=== PATIENT | female | born 1945 | race Caucasian/White ===

== ENCOUNTER → 2020-06-11 15:37 | Outpatient (CLI) | payer OTHER, SELFPAY ==
--- NOTE | ~2020-06-11 | DEXA_ITS ---
Bone Density Report Name: Gloria Escalona Age: 74 Sex: Female Ethnicity: White Date of : 1945 Indication: osteopenia; height loss; prior fracture; hysterectomy; postmenopausal Referring Provider: MARIZA RAINEY Study: Bone densitometry was performed. Exam Date: June 11, 2020 Accession number: [id number] Bone Density: Region BMD T-score Z-score Classification AP Spine (L1-L4) 0.977 -0.6 1.6 Normal Femoral Neck (Left) 0.560 -2.6 -0.7 Osteoporosis Total Hip (Left) 0.699 -2.0 -0.4 Osteopenia Femoral Neck (Right) 0.541 -2.8 -0.8 Osteoporosis Total Hip (Right) 0.688 -2.1 -0.4 Osteopenia Total Hip Mean 0.694 -2.1 -0.4 Osteopenia World Health Organization criteria for BMD impression classify patients as: Normal (T-score at or above -1.0), Osteopenia (T-score between -1.0 and -2.5), or Osteoporosis (T-score at or below -2.5). 10-year Fracture Risk: FRAX not reported because: Some T-score for Spine Total or Hip Total or Femoral Neck at or below -2.5 Previous Exams: Region Exam Age BMD T-score BMD Change BMD Change Date g/cm2 vs Baseline vs Previous AP Spine(L1-L4) 06/11/2020 74 0.977 -0.6 0.062 0.018 01/26/2017 71 0.960 -0.8 0.045 -0.025 01/26/2017 71 0.985 -0.6 0.070 0.070 04/04/2009 63 0.915 -1.2 Total Hip(Left) 06/11/2020 74 0.699 -2.0 -0.113 -0.015 01/26/2017 71 0.714 -1.9 -0.098 -0.098 04/04/2009 63 0.812 -1.1 Total Hip(Right) 06/11/2020 74 0.688 -2.1 -0.068 -0.044* 01/26/2017 71 0.733 -1.7 -0.024 -0.024 04/04/2009 63 0.757 -1.5 *Denotes significance at 95% confidence level, LSC for AP Spine = 0.022 g/cm2, LSC for Total Hip = 0.027 g/cm2 Clinical Information Provided by Patient: Has had a low trauma fracture Has used the following medications: Evista (i.e. raloxifene), Calcium Has the following medical conditions: Hysterectomy, COLITIS Patient maximum height was 63 Menopause Age: 48 Drinks caffeinated beverages Onset of menses at age 12.5 Number of children 1 Impression: The patient has established osteoporosis, based on the Right Femoral Neck T-score and the existence of a prior fracture. The patient has risk factors, including: previous fracture. The BMD for the Total Hip(Right) decreased, changing by -0.044 since the last DXA exam. Discussion: HIGH RISK OF FRACTURE. BON
--- NOTE | ~2020-06-11 | MM_ITS ---
EXAMINATION: MM screening [facility] BI w charly HISTORY: Screening TECHNIQUE: Craniocaudal and mediolateral oblique 3-D tomosynthesis images were obtained and synthetic 2-D images were generated. CAD analysis was submitted and interpreted. COMPARISON: Comparison to multiple prior studies sequentially, with oldest reviewed study dated 01/08. BREAST PARENCHYMAL COMPOSITION: There are scattered areas of fibroglandular density. FINDINGS: Bilateral breast asymmetries/nodules are unchanged. There is no evidence of suspicious mass , calcification, or architectural distortion to suggest malignancy in either breast. There has been n o suspicious interval change. IMPRESSION: 1. No mammographic evidence of malignancy. 2. Recommend routine screening mammography in one year. BI-RADS Category 2: Benign finding(s). Reviewed, dictated and finalized at location A.
== END ==
PROVIDERS: PCP Internal Medicine; Visit Provider Obstetrics & Gynecology
DX: Z12.31 Encounter for screening mammogram for malignant neoplasm of breast (principal); Z78.0 Asymptomatic menopausal state; M81.0 Age-related osteoporosis without current pathological fracture; M85.89 Other specified disorders of bone density and structure, multiple sites
CPT/HCPCS: 77063; 77067; 77080

== ENCOUNTER → 2021-11-18 14:38 | Outpatient (CLI) | payer OTHER, SELFPAY ==
--- NOTE | ~2021-11-18 | MM_ITS ---
EXAMINATION: MM screening [facility] BI w charly HISTORY: Screening TECHNIQUE: Craniocaudal and mediolateral oblique 3-D tomosynthesis images were obtained and synthetic 2-D images were generated. CAD analysis was submitted and interpreted. COMPARISON: Comparison to multiple prior studies sequentially, with oldest reviewed study dated 01/08. BREAST PARENCHYMAL COMPOSITION: There are scattered areas of fibroglandular density. FINDINGS: Bilateral breast asymmetries are stable. There is no evidence of suspicious mass, calcifica tion, or architectural distortion to suggest malignancy in either breast. There has been no suspiciou s interval change. IMPRESSION: 1. No mammographic evidence of malignancy. 2. Recommend routine screening mammography in one year. BI-RADS Category 1: Negative Reviewed, dictated and finalized at location A.
== END ==
PROVIDERS: PCP Internal Medicine; Visit Provider Nurse Practitioner
DX: Z12.31 Encounter for screening mammogram for malignant neoplasm of breast (principal)
CPT/HCPCS: 77063; 77067

== ENCOUNTER 2023-10-31 13:10 | Outpatient (CLI) | payer OTHER, SELFPAY ==
--- NOTE | ~2023-10-31 | MM_ITS ---
EXAMINATION: MM screening meena BI w charly HISTORY: Screening TECHNIQUE: Craniocaudal and mediolateral oblique 3-D tomosynthesis images were obtained and synthetic 2-D images were generated. CAD analysis was submitted and interpreted. COMPARISON: Comparison to multiple prior studies sequentially, with oldest reviewed study dated 01/08. BREAST PARENCHYMAL COMPOSITION: Not dense: There are scattered areas of fibroglandular density. FINDINGS: Bilateral breast asymmetries are stable. There is no evidence of suspicious mass, calcifica tion, or architectural distortion to suggest malignancy in either breast. There has been no suspiciou s interval change. IMPRESSION: 1. No mammographic evidence of malignancy. 2. Recommend routine screening mammography in one year. BI-RADS Category 1: Negative Reviewed, dictated and finalized at location B.
== END 2023-10-31 13:11 | disposition home or self-care (01) ==
LOC: MICIMG 13:12
PROVIDERS: PCP Internal Medicine; Visit Provider Nurse Practitioner
DX: Z12.31 Encounter for screening mammogram for malignant neoplasm of breast (principal)
CPT/HCPCS: 77063; 77067

== ENCOUNTER 2024-07-09 10:06 | Outpatient (CLI) | payer OTHER, SELFPAY ==
--- NOTE | ~2024-07-09 | DEXA_ITS ---
Bone Density Report Name: HAZEL MICHEL Age: 78 Sex: Female Ethnicity: White Date of : 1945 Indication: osteopenia; height loss; hysterectomy; Referring Provider: IVANIA, MELISSA Study: Bone densitometry was performed. Exam Date: July 09, 2024 Accession number: [id number] Bone Density: Region BMD T-score Z-score Classification AP Spine(L1-L4) 0.993 -0.5 2.0 Normal Femoral Neck (Left) 0.564 -2.6 -0.4 Osteoporosis Total Hip (Left) 0.718 -1.8 0.0 Osteopenia Femoral Neck (Right) 0.542 -2.8 -0.6 Osteoporosis Total Hip (Right) 0.672 -2.2 -0.3 Osteopenia Total Hip Mean 0.695 -2.0 -0.2 Osteopenia World Health Organization criteria for BMD impression classify patients as: Normal (T-score at or above -1.0), Osteopenia (T-score between -1.0 and -2.5), or Osteoporosis (T-score at or below -2.5). 10-year Fracture Risk: FRAX not reported because: Some T-score for Spine Total or Hip Total or Femoral Neck at or below -2.5 Previous Exams: -- Region Exam Age BMD T-score BMD Change BMD Change Date g/cm2 vs Baseline vs Previous -- AP Spine (L1-L4) 07/09/2024 78 0.993 -0.5 8.5%# 1.6%# 06/11/2020 74 0.977 -0.6 6.8%# 1.8% 01/26/2017 71 0.960 -0.8 4.9%# -2.6%# 01/26/2017 71 0.985 -0.6 7.6%# 7.6%# 04/04/2009 63 0.915 -1.2 Total Hip(Left) 07/09/2024 78 0.718 -1.8 -11.6%# 2.7%# 06/11/2020 74 0.699 -2.0 -13.9%# -2.1% 01/26/2017 71 0.714 -1.9 -12.1%# -12.1%# 04/04/2009 63 0.812 -1.1 Total Hip(Right) 07/09/2024 78 0.672 -2.2 -11.2%# -2.4%# 06/11/2020 74 0.688 -2.1 -9.0%# -6.0%* 01/26/2017 71 0.733 -1.7 -3.1%# -3.1%# 04/04/2009 63 0.757 -1.5 -- *Denotes significance at 95% confidence level, LSC for AP Spine = 0.022 g/cm2, LSC for Total Hip = 0.027 g/cm2 # Denotes dissimilar scan types or analysis methods Clinical Information Provided by Patient: Has used the following medications: HRT (i.e. estrogen/hormone therapy) Has the following medical conditions: Hysterectomy Patient maximum height was 63 Menopause Age: 48 Drinks caffeinated beverages Onset of menses at age 12 Number of children 1 Impression: The patient has osteoporosis, based on the Right Femoral Neck T-score. Unable to evaluate interval change due to the use of different scan modes. Discussion: INCREASED RISK OF FRACTURE. BONE DENSITY IS UNDESIRABLY LOW AT ONE OR MORE SKELETAL SITES, CONSISTENT WITH POSTMENOPAUSAL OSTEOPOROSIS. This patient's lowest T-score meets the World Health Organization's (WHO) criteria for osteoporosis at one or more sites (T-score -2.5 or below). In untreated patients, the risk of osteoporotic fracture increases approximately two-fold for each 1.0 SD decrease in T-score. Low bone density is not the only risk factor for fracture; also consider factors such as patient's age, frailty or poor health, risk of falling, risk of injury, previous osteoporotic fracture, family history of osteoporosis, cigarette smoking, low body weight, etc. Not everyone with low bone mineral density has osteoporosis; osteomalacia and other metabolic bone disorders should also be considered. Patients who have osteoporosis should be evaluated for specific diseases and conditions (secondary causes) that may cause or contribute to bone loss. The [place] [employer] (AACE) and National Osteoporosis Foundation (NOF) recommend pharmacologic intervention for all postmenopausal women whose T-score is in this range. The patient should follow a healthful lifestyle (good nutrition with adequate calcium and vitamin D, and appropriate weight-bearing exercise). Follow-Up: Consider a repeat BMD and Vertebral Fracture Assessment (VFA) exam in 2 years or sooner if medically necessary, to reassess this patient's status. Reported by: VASILE on 07/09/2024 10:26:00 AM. Reviewed, dictated and finalized at location A.
== END 2024-07-09 10:07 | disposition home or self-care (01) ==
LOC: MICIMG 10:09
PROVIDERS: PCP Internal Medicine; Visit Provider Nurse Practitioner
DX: M81.0 Age-related osteoporosis without current pathological fracture (principal); M85.89 Other specified disorders of bone density and structure, multiple sites; Z78.0 Asymptomatic menopausal state
CPT/HCPCS: 77080